=== PATIENT | female | born 1950 | race Caucasian/White ===

== ENCOUNTER 2016-09-22 19:51 | Emergency (ER) | payer OTHER ==
[2016-09-22] MEDS ORDERED: SODIUM CHLORIDE 0.9% 10ML FLUSH IV ONE (20:01)
[2016-09-22 20:20] LABS: ISTAT CREATININE 0.3 mg/dl (0.6-1.3); ISTAT HEMOGLOBIN 6.5 g/dl (12.0-16.0); ISTAT IONIZED CALCIUM 0.82 mmol/l (1.12-1.32)
--- NOTE | 2016-09-22 22:47 | EMERGENCY ROOM VISIT NOTE ---
History Report prepared by [place]: Stefania Mccormick Under the Supervision of: Dr. Cory Reese M.D. First contact with patient: 19:59 Chief Complaint: CARDIAC ARREST Stated Complaint: CARDIAC ARREST History of Present Illness The patient is a 66 year old female who presents to the Emergency Room with complaints of a sudden cardiac arrest that occurred at 1845 this evening. Per EMS, the patient was witnessed in cardiac arrest at 1845 and CPR was started 15 minutes later. They note that the patient was shocked five times with an AED and was given five rounds of epinephrine prior to arrival. EMS reports that the patient has been in Asystole and has been given a liter of fluid. It was did attempt for endotracheal intubation but was unsuccessful noting limitations due to her body habitus. They did attempt a Zachary airway as well. The patient had a nasal airway. The history is limited secondary to cardiac arrest. Source of History: EMS History Limited By: cardiac arrest Onset: 1845 this evening Position: other (global) Quality: other (cardiac arrest) Timing: other (sudden) Review of Systems See HPI is limited secondary to cardiac arrest. Past Medical & Surgical unobtainable secondary to cardiac arrest. Family History unobtainable secondary to cardiac arrest. Social History Smoking Status: Unknown if Ever Smoked Social History: unobtainable secondary to cardiac arrest. Current/Historical Medications Unable to Obtain Active Prescriptions or Reported Meds Physical Exam Physical Exam GENERAL: Unconscious, unresponsive, CPR in progress. HENT: Normocephalic, atraumatic. Oropharynx unremarkable. Nasal airway in place. Bloody mucus present on the face. EYES: Normal conjunctiva. Sclera non-icteric. NECK: Anatomy not palpable secondary to significant obesity. Cannot appreciate JVD. RESPIRATORY: Coarse but Breath sounds equal bilaterally. CARDIAC: No pulse. No heart sounds. ABDOMEN: Soft, non-distended. No masses. RECTAL: Deferred. MUSCULOSKELETAL: Atraumatic. LOWER EXTREMITIES: Mottled discoloration. NEURO: GCS of 3 SKIN: No rash or jaundice noted. Medical Decision & Procedures Laboratory Results Test 09/22/16 20:02 Bedside Hemoglobin 6.5 g/dl (12.0-16.0) Bedside Hematocrit 19 % (37-47) Bedside Sodium 150 mEq/L (135-144) Bedside Potassium 4.0 mEq/L (3.3-5.0) Bedside Chloride 120 mEq/L (101-112) Bedside Total CO2 13 mEq/l (24-31) Anion Gap 23.0 mmol/L (16-25) Bedside Blood Urea Nitrogen 8 mg/dl (7-18) Bedside Creatinine 0.3 mg/dl (0.6-1.3) Bedside Glucose (other) 173 mg/dl (70-99) Bedside Ionized Calcium (Manuel) 0.82 mmol/l (1.12-1.32) Laboratory results reviewed by me Procedure Endotracheal Intubation Indication cardiac arrest. The patient was on 100% oxygen via NRB prior to the procedure. Suction, airway equipment, RSI drugs, respiratory equipment, and appropriate personnel were prepared prior to the initiation of the procedure. A time out was taken. After observing the clinical benefit of the medications, the airway was visualized with difficulty utilizing a GlideScope. An attempt was made with a 7.0 size ETT tube, but would not pass secondary to airway edema. The patient was then bagged and a 6.5 tube ETT tube was placed for intubation. There was difficulty to pass but did to 24 cm using standard technique. The cuff inflated without signs of malfunction. There were bilateral breath sounds, positive colormetric change, pink frothy fluid noted in the tube, no gastric sounds, a good capnography waveform. ED Course 1949: The patient was evaluated in room A1. A complete history and physical exam was performed. 1953: The patient was intubated at this time. See procedure note for further detail. 1955: The patient was administered an additional dose of epinephrine. 1999: The patient was given a dose of epinephrine. 2002: Bedside ultrasound revealed a cardiac standstill and no pericardial effusion. 2003: Time of was announced. 2010: I discussed the patient's case with her family. I updated them on the entire scenario and answered all of their questions. They informed me that the patient never had a family doctor and never told anyone any concerns. The family notes that she has always had breathing issues. Medical Decision Additional history obtained from EMS. I did provide medical command. The patient's history was concerning for cardiac arrest. Differential diagnosis: Etiologies such as cardiac ischemia, aortic dissection, pulmonary embolism, electrolyte abnormality, acidosis, tension pneumothorax, hypothermia, hypovolemia, intracranial event, as well as others were entertained. Physical examination: The patient was unconscious and mottled. ER treatment provided: IV push epinephrine 2 for a total of 7 including prehospital IV normal saline CPR Endotracheal intubation as above Diagnostics interpreted by me: Deferred. Cardiac monitoring revealed asystole in 3 leads. Course: The patient was in cardiac arrest. Full ACLS protocol was initiated by me. Code blue personnel were present. The patient had CPR continued. An IV was established. Fluids were continued. The patient had 2 doses of IV epinephrine. I did intubate the patient as above. She was extremely difficult to intubate given her anatomy. There was significant airway edema present and I was unable to pass a 7.0 tube. A 6.5 endotracheal tube was passed. It was very challenging. She had good colorimetric change after this. Breath sounds were equal. Unfortunately despite this, additional CPR, and the above- mentioned medications and prehospital defibrillation's she had no return of spontaneous circulation. I did do a limited cardiac ultrasound and this revealed no pericardial effusion but cardiac standstill present. At this point in time given the duration of the event the CODE BLUE was stopped and the patient was pronounced at 2004 hrs. I did meet with the family and inform them.I gave my usual and customary discussion regarding this issue. The chart was completed utilizing [employer] Speech voice recognition software. Grammatical errors, random word insertions, pronoun errors, and incomplete sentences are an occasional consequence of this system due to software limitations, ambient noise, and hardware issues. Any formal questions or concerns about the content, text, or information contained within the body of this dictation should be directly addressed to the physician for clarification. Impression Primary Impression: Cardiac arrest Critical Care I have personally spent greater than 30 minutes of critical care time in the direct management of this patient. This includes bedside care, interpretation of diagnostic studies, and testing, discussion with consultants, prehospital command, and family members, and other required patient management activities. This 30 minutes is in excess of all separately billable procedures. Scribe Attestation The scribe's documentation has been prepared under my direction and personally reviewed by me in its entirety. I confirm that the note above accurately reflects all work, treatment, procedures, and medical decision making performed by me. Departure Information Dispostion Prescriptions Unable to Obtain Active Prescriptions or Reported Meds
== END 2016-09-22 21:06 | disposition expired ==
LOC: C.ED 20:00
DX: I46.9 Cardiac arrest, cause unspecified (principal)